=== PATIENT | female | born 1970 | race Caucasian/White ===

== ENCOUNTER 2021-11-03 13:59 | Outpatient (CLI) | payer OTHER ==
[2021-11-03 15:54] LABS: Hemoglobin 13.8 g/dL (12.0-15.5); Mean Corpuscular HGB CONC 33.4 g/dL (32.0-36.0); Mean Corpuscular Hemoglobin 29.5 pg (27.0-33.0); Mean Corpuscular Volume 88.2 fl (81.6-98.3); Mean Platelet Volume 10.1 fl (7.4-10.4); Platelet Count 276 10x3/uL (150-450); RBC Distribution Width 12.1 % (11.5-14.5); Red Blood Cell (RBC) Count 4.68 10x6/uL (3.90-5.03); White Blood Cell (WBC) Count 7.8 10x3/uL (3.5-10.5)
[2021-11-03 16:17] LABS: Anion Gap 13 mmol/L (10-20); BUN (Urea Nitrogen) 10 mg/dL (9.8-20.1); Calc. Creatinine Clearance 0 mL/min (70-130); Calcium 9.4 mg/dL (7.8-10.44); Carbon Dioxide 27 mmol/L (22-29); Chloride 104 mmol/L (98-107); Glucose 84 mg/dL (70-105); Potassium 4.4 mmol/L (3.5-5.1); Sodium 140 mmol/L (136-145)
[2021-11-03 23:49] LABS: SARS-CoV-2 PCR by NAA Not Detected (NotDetected)
== END 2021-11-03 14:00 | disposition home or self-care (01) ==
LOC: LABBT 13:59
PROVIDERS: ATTEND Neurological Surgery
DX: Z01.818 Encounter for other preprocedural examination (principal); Z20.822 Contact with and (suspected) exposure to COVID-19
CPT/HCPCS: 80048; 85027; 93005; 93010; U0003; U0005

== ENCOUNTER 2021-11-08 05:29 | Observation (INO) | payer OTHER ==
[2021-10-30 14:08] VITALS: BMI 38.2
[2021-11-08] MEDS ORDERED: Fentanyl 250 MCG/5 ML VIAL ONE (06:18)
[2021-11-08] MEDS ORDERED: ceFAZolin 2 GM/Dextrose 50 ML IVPB ONE (06:50)
[2021-11-08] MEDS ORDERED: Famotidine/PF 20 mg/2ml Vial ONE (07:13)
[2021-11-08] MEDS ORDERED: ePHEDrine 50 MG/ML VIAL ONE (07:15)
[2021-11-08] MEDS ORDERED: Glycopyrrolate 0.2 MG/ML 5 ML SYRINGE ONE (07:15)
[2021-11-08] MEDS ORDERED: PROPOFOL 200 MG/20 ML VIAL ONE (07:15)
[2021-11-08] MEDS ORDERED: PHENYLEPHRINE-NS 100 MCG/ML 10 ML SYRINGE ONE (07:15)
[2021-11-08] MEDS ORDERED: Rocuronium Bromide 10 MG/ML (10ML VIAL) ONE (07:15)
[2021-11-08] MEDS ORDERED: Ondansetron PF 4 MG/2 ML Vial ONE (07:15)
[2021-11-08] MEDS ORDERED: Dexamethasone 20 MG/5 ML VIAL ONE (07:15)
[2021-11-08] MEDS ORDERED: Lidocaine 1% PF 5 ML VIAL ONE (07:15)
[2021-11-08] MEDS ORDERED: HYDROmorphone 0.5 MG/0.5 ML SYRINGE ONE ×2 (09:30→10:15)
[2021-11-08] MEDS ORDERED: Fentanyl 100 MCG/2 ML VIAL ONE ×3 (09:37→10:37)
[2021-11-08] MEDS ORDERED: Morphine 4 MG/ML VIAL SLOW IVP PRN ×2 (11:52→12:00)
[2021-11-08] MEDS ORDERED: Ondansetron PF 4 MG/2 ML Vial IVP PRN (11:54)
[2021-11-08] MEDS ORDERED: Promethazine HCl 12.5 MG SUPP PR PRN (12:00)
[2021-11-08] MEDS ORDERED: traMADol HCl 50 MG TAB PO PRN ×2 (12:00)
[2021-11-08] MEDS ORDERED: Mag-Al 1200 mg/1200 mg/30 ML UDCUP PO PRN (12:00)
[2021-11-08] MEDS ORDERED: HYDROcodone/Acetaminophen 10/325 mg Tablet PO PRN (12:00)
[2021-11-08] MEDS ORDERED: diphenhydrAMINE 50 MG/ML VIAL IVP PRN (12:00)
[2021-11-08] MEDS ORDERED: Promethazine HCl 25 MG/ML VIAL IM PRN (12:00)
[2021-11-08] MEDS ORDERED: Milk Of Magnesia 30 ML UDCUP PO PRN (12:00)
[2021-11-08] MEDS ORDERED: Promethazine 25 MG TAB PO PRN (12:00)
[2021-11-08] MEDS ORDERED: diphenhydrAMINE 25 MG CAP PO PRN (12:00)
[2021-11-08] MEDS: HYDROcodone/Acetaminophen 10/325 mg Tablet PO PRN ×3 (12:13→21:19)
[2021-11-08] MEDS: Sodium Chloride 0.9% 1,000 ML IV SCH (12:43)
[2021-11-08] MEDS: Cyclobenzaprine 10 MG TAB PO PRN (13:00)
[2021-11-08] MEDS: ceFAZolin 2 GM/Dextrose 50 ML 2 GM in Premix Bag 1 BAG IVPB SCH (15:58)
[2021-11-08] MEDS: Gabapentin 300 MG CAP PO SCH ×2 (15:58→21:19)
[2021-11-09] MEDS: Sodium Chloride 0.9% 1,000 ML IV SCH ×2 (00:01→15:06)
[2021-11-09] MEDS: ceFAZolin 2 GM/Dextrose 50 ML 2 GM in Premix Bag 1 BAG IVPB SCH (00:27)
[2021-11-09] MEDS: Cyclobenzaprine 10 MG TAB PO PRN (00:27)
[2021-11-09] MEDS: HYDROcodone/Acetaminophen 10/325 mg Tablet PO PRN ×3 (06:18→15:07)
[2021-11-09] MEDS: Gabapentin 300 MG CAP PO SCH ×2 (08:20→15:07)
[2021-11-09] MEDS ORDERED: Famotidine 20 MG TAB PO SCH (09:00)
[2021-11-09] MEDS ORDERED: Lisinopril 20 MG TAB PO SCH (09:00)
[2021-11-09 11:58] VITALS: BP 108/70; TEMP 98
== END 2021-11-09 15:45 | disposition home or self-care (01) ==
LOC: SDC 05:29 → SURG A 09:53
PROVIDERS: ADMIT Neurological Surgery; ATTEND Neurological Surgery
PROC: 0SG0071 Fusion of Lumbar Vertebral Joint with Autologous Tissue Substitute, Posterior Approach, Posterior Column, Open Approach (ICD-10-PCS; principal; 2021-11-08)
PROC: 0SG3071 Fusion of Lumbosacral Joint with Autologous Tissue Substitute, Posterior Approach, Posterior Column, Open Approach (ICD-10-PCS; 2021-11-08)
DX: M51.36 Other intervertebral disc degeneration, lumbar region (principal); M51.37 Other intervertebral disc degeneration, lumbosacral region; M43.16 Spondylolisthesis, lumbar region; I10 Essential (primary) hypertension; G89.29 Other chronic pain; Z79.899 Other long term (current) drug therapy; Z91.018 Allergy to other foods; Z91.048 Other nonmedicinal substance allergy status
CPT/HCPCS: 76000; 96365; 96375; 96376; C1713; C1768; G0378; J0690; J1100; J1170; J2270; J2405; J2704; J3010; J3370; J3490; S0028